=== PATIENT | female | born 1955 | race African-American/Black ===

== ENCOUNTER 2022-03-02 12:17 | Inpatient (IN) | payer OTHER ==
[2022-03-02 13:55] LABS: BASO % 0.2 % (0-2.0); EOS % 0.1 % (0-4.5); HEMATOCRIT 50.2 % (32.4-45.2); HEMOGLOBIN 16.9 GM/dL (10.7-15.3); LYMPH % 30.1 % (8-40); MCH 30.1 pg (25.7-33.7); MCHC 33.6 g/dl (32.0-36.0); MEAN CELL VOLUME 89.7 fl (80-96); MEAN PLT VOLUME 8.2 fl (7.5-11.1); MONO % 7.6 % (3.8-10.2); PLATELET COUNT 154 10^3/uL (134-434); RDW 13.3 % (11.6-15.6); WHITE BLOOD COUNT 5.3 K/mm3 (4.0-10.0)
[2022-03-02 14:01] LABS: VENOUS BASE EXCESS -4.1 mmol/L (-2-2); VENOUS O2 SATURATION 35.4 % (70-80); VENOUS PCO2 43.2 mmHg (38-52); VENOUS PH 7.322 (7.310-7.410)
[2022-03-02] MEDS ORDERED: LACTATED RINGERS SOLUTION 1000 ML INFUS.BAG IV ONE (14:01)
[2022-03-02 14:03] LABS: INR 1.11 (0.83-1.09); PROTHROMBIN TIME (PATIENT) 12.8 SEC (9.7-13.0)
[2022-03-02 14:05] LABS: ACTIVATED PTT 28.2 SECONDS (25.2-36.5)
[2022-03-02 14:18] LABS: CALCIUM 9.3 mg/dL (8.5-10.1); CHLORIDE 103 mmol/L (98-107); SODIUM 137 mmol/L (136-145)
[2022-03-02 14:20] LABS: ALBUMIN 4.2 g/dl (3.4-5.0); ANION GAP 8 MMOL/L (8-16); BLOOD UREA NITROGEN 10.6 mg/dL (7-18); CO2 25 mmol/L (21-32); GLUCOSE,RANDOM 111 mg/dL (74-106); MAGNESIUM 2.1 mg/dL (1.8-2.4)
[2022-03-02 14:22] LABS: SGOT/AST 18 U/L (15-37); SGPT/ALT 21 U/L (13-61)
[2022-03-02 14:24] LABS: ALK PHOS 104 U/L (45-117); BILIRUBIN,TOTAL 1.4 mg/dL (0.2-1); TOT PROT 8.5 g/dl (6.4-8.2)
[2022-03-02 14:27] LABS: N-TERMINAL BNP 1661.7 pg/ml (5-125)
[2022-03-02] MEDS ORDERED: ASPIRIN 81 MG CHEWABLE TABLETS PO ONE (14:56)
[2022-03-02] MEDS ORDERED: ASPIRIN 81 MG CHEWABLE TABLETS ONE (15:04)
[2022-03-02] MEDS ORDERED: HEPARIN NA (PORCINE) 5,000 UNITS/ML 1ML VIAL IVPUSH ONE (15:05)
[2022-03-02] MEDS ORDERED: HEPARIN NA (PORCINE) 5,000 UNITS/ML 1ML VIAL IVPUSH PRN ×4 (15:05→18:24)
[2022-03-02] MEDS ORDERED: HEPARIN INFUSION - 25,000 UNITS/500 ML INFUS.BAG IVPB SCH ×2 (15:15→18:30)
[2022-03-02] MEDS ORDERED: HEPARIN NA (PORCINE) 5,000 UNITS/ML 1ML VIAL ONE ×2 (15:16→15:23)
[2022-03-02] MEDS ORDERED: HEPARIN INFUSION - 25,000 UNITS/500 ML INFUS.BAG IVPB ONE (15:16)
[2022-03-02] MEDS ORDERED: NITROGLYCERIN 2% OINTMENT - 1GM PACKET TD ONE ×2 (16:03→16:04)
[2022-03-02] MEDS ORDERED: ACETAMINOPHEN 325 MG TABLET (FP) ONE (16:03)
[2022-03-02] MEDS ORDERED: ACETAMINOPHEN 325 MG TABLET (FP) PO ONE (16:04)
[2022-03-02] MEDS: METOPROLOL TARTRATE 25 MG TABLET (FP) PO SCH ×2 (20:00→23:00)
[2022-03-02] MEDS ORDERED: ATORVASTATIN CA 40 MG TABLET (FP) PO SCH (22:00)
[2022-03-02] MEDS: LOSARTAN POTASSIUM 50 MG TABLET PO SCH (23:00)
[2022-03-03 07:32] LABS: HEMATOCRIT 44.4 % (32.4-45.2); HEMOGLOBIN 14.6 GM/dL (10.7-15.3); MCH 29.7 pg (25.7-33.7); MCHC 32.8 g/dl (32.0-36.0); MEAN CELL VOLUME 90.7 fl (80-96); MEAN PLT VOLUME 8.5 fl (7.5-11.1); PLATELET COUNT 138 10^3/uL (134-434); RDW 13.5 % (11.6-15.6); WHITE BLOOD COUNT 5.2 K/mm3 (4.0-10.0)
[2022-03-03 08:10] LABS: BLOOD UREA NITROGEN 16.2 mg/dL (7-18)
[2022-03-03 08:11] LABS: CALCIUM 8.7 mg/dL (8.5-10.1)
[2022-03-03 08:14] LABS: CREATININE 1.1 mg/dL (0.55-1.3)
[2022-03-03 08:38] VITALS: TEMP 98.8
[2022-03-03] MEDS ORDERED: OLANZapine 10 MG TABLET PO SCH (10:00)
[2022-03-03] MEDS ORDERED: HYDROCHLOROTHIAZIDE 25 MG TABLET (FP) PO SCH (10:00)
[2022-03-03] MEDS ORDERED: ESCITALOPRAM OXALATE 20 MG TABLET PO SCH (10:00)
[2022-03-03] MEDS ORDERED: ASPIRIN 81 MG CHEWABLE TABLETS PO SCH (10:00)
[2022-03-03] MEDS: LOSARTAN POTASSIUM 50 MG TABLET PO SCH (10:57)
[2022-03-03] MEDS: METOPROLOL TARTRATE 25 MG TABLET (FP) PO SCH (10:57)
[2022-03-03] MEDS ORDERED: ALTEPLASE 50MG 25 MG in SODIUM CHLORIDE 225 ML IVPB ONE (13:15)
[2022-03-03 14:28] VITALS: BP 106/72; PULSE 64
== END 2022-03-03 21:10 | disposition expired | DRG 175 ==
LOC: JER 12:17 → JERBED 14:58 → J4W 20:37 → JICU 03-03 15:57
PROVIDERS: ADMIT Internal Medicine; ATTEND Internal Medicine
PROC: 0W9D3ZZ Drainage of Pericardial Cavity, Percutaneous Approach (ICD-10-PCS; principal; 2022-03-03)
PROC: 3E04317 Introduction of Other Thrombolytic into Central Vein, Percutaneous Approach (ICD-10-PCS; 2022-03-03)
PROC: 5A12012 Performance of Cardiac Output, Single, Manual (ICD-10-PCS; 2022-03-03)
PROC: B31SYZZ Fluoroscopy of Right Pulmonary Artery using Other Contrast (ICD-10-PCS; 2022-03-03)
DX: I26.99 Other pulmonary embolism without acute cor pulmonale (principal); I21.A1 Myocardial infarction type 2; J96.01 Acute respiratory failure with hypoxia; I31.3 Pericardial effusion (noninflammatory); I16.9 Hypertensive crisis, unspecified; I46.9 Cardiac arrest, cause unspecified; E78.5 Hyperlipidemia, unspecified
CPT/HCPCS: 36415; 37184; 37212; 71045-TC-FY; 71275-TC; 75746-TC-FY; 80048; 80053; 82803; 83735; 83880; 84443; 84484; 85025; 85027; 85610; 85730; 87804; 93005; 93010; 93306-TC; 99285-25; C9803-CS; J1644; Q9967; U0003; U0005